=== PATIENT | female | born 1975 | race Caucasian/White ===

== ENCOUNTER 2016-09-12 17:47 | Emergency (ER) | payer BC | END 2016-09-12 19:11 | disposition left against medical advice (07) | LOC: UCCORT 17:47 | DX: R09.89 Other specified symptoms and signs involving the circulatory and respiratory systems (principal); R05 Cough; Z53.21 Procedure and treatment not carried out due to patient leaving prior to being seen by health care provider ==

== ENCOUNTER 2017-12-22 22:08 | Emergency (ER) | payer SELFPAY ==
[2017-12-22 22:20] VITALS: BP 138/98
== END 2017-12-22 23:40 | disposition left against medical advice (07) ==
LOC: ED 22:08
DX: H53.8 Other visual disturbances (principal); Z53.21 Procedure and treatment not carried out due to patient leaving prior to being seen by health care provider